=== PATIENT | female | born 1970 | race Caucasian/White ===

== ENCOUNTER 2019-09-07 02:11 | Emergency (ER) | payer MEDICAID ==
[~2019-09-07] VITALS: Ht 162.6 cm; Wt 61.2 kg
--- NOTE | 2019-09-07 02:25 | NUR ---
Dr. Dumas at bedside for MSE
[2019-09-07] MEDS ORDERED: KETOROLAC TROMETHAMINE 30 MG INJ ONE (02:42)
[2019-09-07] MEDS ORDERED: DEXAMETHASONE 4 MG TABLET ONE (02:43)
[2019-09-07] MEDS ORDERED: KETOROLAC TROMETHAMINE 30 MG INJ IM ONE (02:45)
[2019-09-07] MEDS ORDERED: DEXAMETHASONE 4 MG TABLET PO ONE (02:45)
--- NOTE | 2019-09-07 03:04 | NUR ---
Patient discharged to home in stable condition. Written and verbal after care instructions given. Patient verbalizes understanding of instructions. Stressed follow up or return to ER for worsening s/s. Patient ambulating with steady gait. NAD noted
[2019-09-07 03:05] VITALS: BP 128/62
== END 2019-09-07 03:04 | disposition home or self-care (01) ==
LOC: ER 02:34
DX: M54.12 Radiculopathy, cervical region (principal); R07.89 Other chest pain; E78.5 Hyperlipidemia, unspecified; Z91.81 History of falling
CPT/HCPCS: 93005 ×2; 96372; 99283; J1885; J8540; A4663

== ENCOUNTER 2020-01-05 09:32 | Emergency (ER) | payer MEDICAID ==
[~2020-01-05] VITALS: Ht 160 cm; Wt 63.5 kg
[2020-01-05] MEDS ORDERED: METHOCARBAMOL 500 MG TABLET PO STA (09:47)
[2020-01-05 09:57] LABS: *BILIRUBIN,URIN NEGATIVE (NEGATIVE); *BLOOD, URINE TRACE (NEGATIVE); *CLARITY,URINE CLOUDY (CLEAR); *COLOR,URINE YELLOW (YELLOW); *KETONES,URINE NEGATIVE (NEGATIVE); *URINE HCG, QUAL NEG (NEGATIVE); *UROBILINOGEN,URINE 0.2 E.U./dl (NORMAL); LEUKOCYTE ESTERASE ,URINE 1+ (NEGATIVE); NITRITE, URINE NEGATIVE (NEGATIVE); PH,URINE 6.5 (5.0-8.0); UGLUCOSE NEGATIVE (NEGATIVE)
[2020-01-05] MEDS ORDERED: KETOROLAC TROMETHAMINE 15 MG INJ IM ONE (10:00)
[2020-01-05] MEDS ORDERED: METHOCARBAMOL 500 MG TABLET ONE (10:05)
[2020-01-05] MEDS ORDERED: KETOROLAC TROMETHAMINE 15 MG INJ ONE (10:05)
[2020-01-05] MEDS ORDERED: HYDROCODONE/APAP 5-325MG TABLET ONE (10:43)
[2020-01-05] MEDS ORDERED: HYDROCODONE/APAP 5-325MG TABLET PO ONE (10:45)
--- NOTE | 2020-01-05 10:58 | NUR ---
Patient is walking around ER & feels much better, MD is aware.
--- NOTE | 2020-01-05 11:04 | NUR ---
Patient discharged to home in stable condition with brisk steady gait. Written and verbal after care instructions given to patient. Patient verbalized understanding & compliance of instructions. Stressed follow up with her primary doctor or return to ER for worsening s/s.
[2020-01-05 12:52] LABS: RBC,URINE 0-3 /HPF (0-3)
[2020-01-05 12:54] LABS: BACTERIA,URINE MANY /HPF (NONE SEEN); SQUAMOUS EPITHELIAL CELL,UR MODERATE /HPF (NONE SEEN)
== END 2020-01-05 11:04 | disposition home or self-care (01) ==
LOC: ER 09:32
DX: M62.830 Muscle spasm of back (principal); M54.6 Pain in thoracic spine
CPT/HCPCS: 81001; 84703; 96372; 99283; J1885; A4663

== ENCOUNTER 2021-07-07 23:42 | Emergency (ER) | payer MEDICAID ==
[~2021-07-07] VITALS: Ht 162.6 cm; Wt 65.8 kg
--- NOTE | 2021-07-08 00:12 | NUR ---
Dr. Mortensen at bedside for MSE.
[2021-07-08] MEDS ORDERED: OXYCODONE/APAP 5-325 MG TABLET PO ONE (00:15)
--- NOTE | 2021-07-08 00:27 | NUR ---
Xray at bedside.
[2021-07-08] MEDS ORDERED: OXYCODONE/APAP 5-325 MG TABLET ONE (00:28)
[2021-07-08] MEDS ORDERED: OXYC-128 PO (01:59)
[2021-07-08 02:08] VITALS: BP 116/69
--- NOTE | 2021-07-08 02:08 | NUR ---
Patient discharged to home in stable condition. Written and verbal after care instructions given. Patient verbalizes understanding of instructions. Stressed follow up or return to ER for worsening s/s. Patient out of ER with steady gait, no acute signs of distress, VSS, all belongings taken.
== END 2021-07-08 02:33 | disposition home or self-care (01) ==
LOC: ER 23:56
DX: S52.502A Unspecified fracture of the lower end of left radius, initial encounter for closed fracture (principal); S80.212A Abrasion, left knee, initial encounter; W01.0XXA Fall on same level from slipping, tripping and stumbling without subsequent striking against object, initial encounter; Y92.89 Other specified places as the place of occurrence of the external cause; E78.5 Hyperlipidemia, unspecified
CPT/HCPCS: 73110; A4663